=== PATIENT | female | born 1985 | race Caucasian/White ===

== ENCOUNTER 2019-02-11 05:07 | Inpatient (IN) | payer BC ==
[2019-02-11] MEDS ORDERED: Sodium Chloride 0.9% 10 ML Syringe FLUSH PRN (05:19)
[2019-02-11] MEDS ORDERED: ceFAZolin 2 GM in Premix Bag 1 BAG IV ONE (05:19)
[2019-02-11] MEDS ORDERED: Citric Acid/Sodium Citrate Solution 30 ML Cup PO ONE (05:19)
[2019-02-11] MEDS ORDERED: Sodium Chloride 0.9% 2.5 ML Syringe FLUSH PRN (05:19)
[2019-02-11] MEDS ORDERED: Sodium Chloride 0.9% 10 ML SDV IV PRN (05:19)
[2019-02-11] MEDS ORDERED: Oxytocin/0.9 % Sodium Chloride 30 UNIT/500 ML BAG IV SCH (05:30)
[2019-02-11] MEDS: Lactated Ringers 1,000 ML IV SCH ×3 (06:41→07:43)
--- NOTE | 2019-02-11 06:53 | PCM.PREANE ---
Preanesthetic Assessment - Anesthesia/Transfusion/Family Hx Anesthesia History: Prior Anesthesia Without Reaction Family History of Anesthesia Reaction: No Transfusion History: No Prior Transfusion(s) Intubation History: Unknown - Review of Systems General: No Symptoms Pulmonary: No Symptoms Cardiovascular: No Symptoms Gastrointestinal: No Symptoms Neurological: No Symptoms Other: Reports: None - Physical Assessment Height: 5 ft 2 in Weight: 78.925 kg ASA Class: 2 Mental Status: Alert & Oriented x3 Airway Class: Mallampati = 2 Dentition: Reports: Normal Dentition Thyro-Mental Finger Breadths: 3 Mouth Opening Finger Breadths: 3 ROM/Head Extension: Full Lungs: Clear to Auscultation, Normal Respiratory Effort Cardiovascular: Regular Rate, Regular Rhythm - Lab Values: Laboratory Last Values WBC 8.06 K/uL (4.0-11.0) 02/11/19 05:45 RBC 3.53 M/uL (4.30-5.90) L 02/11/19 05:45 Hgb 10.9 g/dL (12.0-16.0) L 02/11/19 05:45 Hct 32.1 % (36.0-46.0) L 02/11/19 05:45 MCV 90.9 fL (80.0-98.0) 02/11/19 05:45 MCH 30.9 pg (27.0-32.0) 02/11/19 05:45 MCHC 34.0 g/dL (31.0-37.0) 02/11/19 05:45 RDW Std Deviation 41.6 fl (28.0-62.0) 02/11/19 05:45 RDW Coeff of Elke 13 % (11.0-15.0) 02/11/19 05:45 Plt Count 168 K/uL (150-400) 02/11/19 05:45 MPV 11.20 fL (7.40-12.00) 02/11/19 05:45 Nucleated RBC % 0.0 /100WBC 02/11/19 05:45 Nucleated RBCs # 0 K/uL 02/11/19 05:45 - Allergies Allergies/Adverse Reactions: Allergies Allergy/AdvReac Type Severity Reaction Status Date / Time No Known Allergies Allergy Verified 02/06/19 10:21 - Blood Blood Available: No - Anesthesia Plan Pre-Op Medication Ordered: None - Acknowledgements Anesthesia Type Planned: Spinal (general anesthesia back-up plan) Pt an Appropriate Candidate for the Planned Anesthesia: Yes Alternatives and Risks of Anesthesia Discussed w Pt/Guardian: Yes Pt/Guardian Understands and Agrees with Anesthesia Plan: Yes PreAnesthesia Questionnaire - Past Health History Medical/Surgical History: Denies Medical/Surgical History HEENT History: Reports: Other (See Below) Other HEENT History: glasses as needed Cardiovascular History: Reports: None Respiratory History: Reports: None Gastrointestinal History: Reports: Other (See Below) Other Gastrointestinal History: heartburn with Genitourinary History: Reports: None [employer]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: Musculoskeletal History: Reports: None Neurological History: Reports: None Psychiatric History: Reports: None Endocrine/Metabolic History: Reports: None Hematologic History: Reports: None Immunologic History: Reports: None Oncologic (Cancer) History: Reports: None Dermatologic History: Reports: None - Infectious Disease History Infectious Disease History: Reports: None - Past Surgical History Head Surgeries/Procedures: Reports: None HEENT Surgical History: Reports: None Cardiovascular Surgical History: Reports: None Respiratory Surgical History: Reports: None GI Surgical History: Reports: None Female Surgical History: Reports: Section Endocrine Surgical History: Reports: None Neurological Surgical History: Reports: None Musculoskeletal Surgical History: Reports: None Oncologic Surgical History: Reports: None Dermatological Surgical History: Reports: None - SUBSTANCE USE Smoking Status *Q: Never Smoker Second Hand Smoke Exposure: No Recreational Drug Use History: No - HOME MEDS Home Medications: Home Meds Omeprazole Magnesium [Prilosec Otc] 1 tab PO DAILY 02/06/19 [History] PNV95/Ferrous Fumarate/FA [ Vitamin Tablet] 1 tab PO DAILY 02/06/19 [ History] Doxylamine Succinate [Unisom] 25 mg PO BEDTIME PRN 02/11/19 [History] - CURRENT (IN HOUSE) MEDS Current Meds: Current Medications Lactated Ringer's (Ringers, Lactated) 1,000 mls @ 999 mls/hr IV BOLUS [facility] Last Admin: 02/11/19 06:41 Dose: 999 mls/hr Oxytocin/Sodium Chloride (Oxytocin 30 Unit/500 Ml-Ns) 30 unit in 500 mls @ 250 mls/hr IV TITRATE [facility] Sodium Chloride (Saline Flush) 10 ml FLUSH ASDIRECTED PRN PRN Reason: Keep Vein Open Sodium Chloride (Saline Flush) 2.5 ml FLUSH ASDIRECTED PRN PRN Reason: Keep Vein Open Sodium Chloride (Normal Saline) 10 ml IV ASDIRECTED PRN PRN Reason: IV Use Discontinued Medications Citric Acid/Sodium Citrate (Bicitra Solution) 30 ml PO ONETIME ONE Stop: 02/11/19 05:20 Cefazolin Sodium/Dextrose 2 gm (/ Premix) 50 mls @ 100 mls/hr IV ONETIME ONE Stop: 02/11/19 05:48
[2019-02-11] MEDS ORDERED: Morphine PF 10 MG/10 ML SDV ONE (07:22)
[2019-02-11] MEDS ORDERED: ceFAZolin/Dextrose,Iso-Osmotic 2 GM/50 ML Duplex Bag IV ONE (07:22)
[2019-02-11] MEDS ORDERED: Oxytocin 10 Units/1 ML SDV ONE (07:33)
[2019-02-11] MEDS ORDERED: Ketorolac 30 MG/ML SDV ONE (08:36)
[2019-02-11] MEDS ORDERED: Ondansetron 4 MG/2 ML SDV IVPUSH PRN ×2 (09:10→09:51)
[2019-02-11] MEDS ORDERED: Ibuprofen 800 MG Tab PO PRN (09:10)
[2019-02-11] MEDS ORDERED: Aluminum Hydroxide/Magnesium Hydroxide/Simethicone Susp 30 ML Cup PO PRN (09:10)
[2019-02-11] MEDS ORDERED: Bisacodyl 10 MG Supp RECTAL PRN (09:10)
[2019-02-11] MEDS ORDERED: Acetaminophen/oxyCODONE 325-5 MG Tab PO PRN ×2 (09:10→09:51)
[2019-02-11] MEDS ORDERED: diphenhydrAMINE 50 MG/ML SDV IVPUSH PRN ×2 (09:10→09:51)
[2019-02-11] MEDS ORDERED: Lanolin 100% Cream 7 GM Tube TOP PRN (09:10)
--- NOTE | 2019-02-11 09:13 | PCM.OPNOTE ---
- General Post-Op/Procedure Note Date of Surgery/Procedure: 02/11/19 Operative Procedure(s): Repeat LTCS Findings: Vaible male APGARs 8, 9 weight 3820 gm. Intact placenta with 3V cord. Pre Op Diagnosis: 39 week IUP. Previous C section, desires repeat Post-Op Diagnosis: same Anesthesia Technique: Spinal Primary Surgeon: Sindhu Atkins Distribution Transformer Assembler: Clari Hidalgo Fluid Replacement, Intraop: 1,200 EBL in mLs: 500 Complications: none known Condition: Good Free Text/Narrative:: [id number]
[2019-02-11] MEDS ORDERED: Lactated Ringers 1,000 ML IV SCH (09:15)
[2019-02-11] MEDS ORDERED: Nalbuphine 10 MG/1 ML Vial IVPUSH PRN (09:51)
[2019-02-11] MEDS ORDERED: Naloxone 0.4 MG/ML Syringe IVPUSH PRN (09:51)
[2019-02-11] MEDS ORDERED: fentaNYL 100 MCG/2 ML SDV IVPUSH PRN (09:51)
[2019-02-11] MEDS: Ketorolac 30 MG/ML SDV IVPUSH SCH ×3 (11:21→20:54)
--- NOTE | 2019-02-11 11:36 | OR ---
SURGEON: Sindhu Atkins M.D. DATE OF PROCEDURE: 02/11/2019 PREOPERATIVE DIAGNOSES: 1. 39 weeks' intrauterine . 2. Previous section, desires repeat. POSTOPERATIVE DIAGNOSES: 1. 39 weeks' intrauterine . 2. Previous section, desires repeat. PROCEDURE: Repeat low-transverse section. PRIMARY SURGEON: Sindhu Atknis MD. CORPORATE REPRESENTATIVE: Kelly Hidalgo. ANESTHESIA: Spinal. ESTIMATED BLOOD LOSS: 500 mL. FLUIDS: 1200 mL of crystalloid. COMPLICATIONS: None known. FINDINGS: Viable male. scores of 8 at 1 minute and 9 at 5 minutes. Weight of 3820 g. Intact placenta, 3-vessel cord. DISPOSITION: to nursery, mom in the PACU, stable. PROCEDURE DETAILS: Cari is a 33-year-old, G3, P 1-0-1-1 at 39 weeks' gestational age, who presents for scheduled repeat delivery. Risks of procedure have been discussed with her. Proper consent obtained. The patient was taken to the operating room where she underwent spinal anesthetic, was then placed in dorsal lithotomy position with leftward tilt. SCDs to lower extremities. Maloney to gravity. Was prepped and draped in the usual sterile fashion. Received Ancef prophylactically. Time-out was performed. After being prepped and draped in the usual sterile fashion, anesthesia was tested and found to be adequate. Previous Pfannenstiel scar was now excised. The subcutaneous tissue was incised down to the level of the rectus fascia which was incised in the midline, lateralized on either side sharply and bluntly. The superior aspect of fascia was tented up, dissected sharply and bluntly from underlying muscle. There was a fair amount of dense scar tissue noted along this plane. Similar fashion was performed with the inferior aspect of the fascia. Rectus muscles in the midline. Peritoneum was entered. Rectus muscles with peritoneum were now lateralized bluntly. Uterine position and position palpated. There was a fair amount of dense uterovesical adhesions noted. A self-retaining retractor gently placed. Uterovesical adhesions identified and a bladder flap was created after lysing adhesions along this plane. Bladder was mobilized away from the lower uterine segment. Low transverse hysterotomy was now performed. Uterine cavity was entered with blunt end of scalpel. Hysterotomy was lateralized bluntly and amniotomy was performed. Clear fluid was returned. The 's head was flexed and delivered from the pelvis. Fundal pressure was applied. The infant's head was delivered followed by anterior shoulder, posterior shoulder, and remainder of the body without difficulty. The 's oropharynx and nares were bulb suctioned. After a delay, cord was clamped x2 and cut. Infant was handed off to attending nursing staff. Cord arterial, cord venous, cord blood sampling was obtained. The placenta was now delivered. Uterine cavity was cleared of all clot and debris. Hysterotomy was repaired using 0 Vicryl in continuous running locked fashion followed by a re-imbricating layer. Areas of oozing along the midline, left lateral aspect were replicated with [id number] sutures. Hemostasis thereafter evident. Posterior aspect of the uterus inspected. No defects or hematomas found to be forming. Region was well irrigated, suction dried. Uterus returned to the abdominal cavity. Colonic gutters were cleared of all clot and debris, well irrigated, suction dried. Hysterotomy was inspected, found to be hemostatic. Self-retaining retractor now gently removed. Bladder blade retractor was now placed. Hysterotomy once again inspected and found to be hemostatic. Rectus muscles, peritoneum were now reapproximated using 0 Vicryl with inverted mattress suture technique. Anterior aspect of the muscle, posterior aspect of the fascia were closely inspected. Any areas that were oozing were cauterized. The rectus fascia was now reapproximated using 0 Vicryl in continuous running fashion, beginning laterally on either side, meeting in the midline. Subcutaneous tissue was well irrigated, suction dried. Any areas of oozing were cauterized. The skin edges were reapproximated using 3-0 Vicryl on a Saleem needle in subcuticular fashion followed by Adaptic, Steri-Strips, and Mastisol. Uterus remained firm. Sponge, instrument, and needle counts correct x2. The patient tolerated the procedure well. She will go to PACU in stable condition, to nursery. ISRAEL / MADINA /[id number]
[2019-02-11] MEDS: Simethicone 80 MG Tab.Chew PO SCH ×2 (12:06→18:19)
[2019-02-11] MEDS ORDERED: Dexamethasone 10 MG/ML SDV IVPUSH ONE (12:37)
[2019-02-11] MEDS ORDERED: Ondansetron 4 MG/2 ML SDV IVPUSH ONE (12:37)
[2019-02-11] MEDS ORDERED: Metoclopramide 10 MG/2 ML SDV IVPUSH ONE (12:37)
[2019-02-11] MEDS: Docusate Sodium 100 MG Cap PO SCH (20:55)
[2019-02-12] MEDS: Simethicone 80 MG Tab.Chew PO SCH ×3 (00:08→12:16)
[2019-02-12] MEDS: Ketorolac 30 MG/ML SDV IVPUSH SCH ×2 (03:24→09:19)
--- NOTE | 2019-02-12 07:03 | PCM48HPAN ---
Post Anesthesia Note - EVALUATION WITHIN 48HRS OF ANESTHETIC Vital Signs in Normal Range: Yes Patient Participated in Evaluation: Yes Respiratory Function Stable: Yes Airway Patent: Yes Cardiovascular Function Stable: Yes Hydration Status Stable: Yes Pain Control Satisfactory: Yes Nausea and Vomiting Control Satisfactory: Yes Mental Status Recovered: Yes Resp Rate: 14 - COMMENTS/OBSERVATIONS Free Text/Narrative:: no anesthesia problems, baby intubated and transferred to [facility]
--- NOTE | 2019-02-12 08:52 | PCM.PNPP ---
- General Info Date of Service: 02/12/19 Functional Status: Reports: Pain Controlled, Tolerating Diet, Ambulating, Urinating - Review of Systems General: Reports: Fatigue. Denies: Fever, Weakness Pulmonary: Denies: Shortness of Breath Cardiovascular: Denies: Chest Pain, Palpitations, Lightheadedness Gastrointestinal: Denies: Abdominal Pain, Nausea, Vomiting Genitourinary: Denies: Flank Pain Musculoskeletal: Reports: No Symptoms Skin: Reports: No Symptoms Neurological: Reports: No Symptoms Psychiatric: Reports: Anxiety (son transferred to [facility] for TTN) - General Info Date of Service: 02/12/19 - Patient Data Vital Signs - Most Recent: Last Vital Signs Temp 36.6 C 02/12/19 04:00 Pulse 84 02/12/19 07:00 Resp 14 02/12/19 07:03 BP 124/70 02/12/19 01:00 Pulse Ox 96 02/12/19 07:00 Weight - Most Recent: 78.925 kg I&O - Last 24 Hours: Intake & Output 02/11/19 02/12/19 02/12/19 22:59 06:59 14:59 Intake Total 1000 Output Total 1525 825 Balance -525 -825 Lab Results - Last 24 Hours: Laboratory Results - last 24 hr 02/11/19 02/12/19 Range/Units 09:12 05:37 Hgb 9.6 L (12.0-16.0) g/dL Hct 29.2 L (36.0-46.0) % Cord ABG pH 7.338 (7.18-7.38) Cord ABG Base Excess -3 (-10--2) Cord VBG pH 7.408 (7.25-7.45) Cord VBG Base Excess -4 (-10--2) Med Orders - Current: Current Medications Al Hydroxide/Mg Hydroxide (Mag-Al Plus) 30 ml PO Q8H PRN PRN Reason: Heartburn Bisacodyl (Dulcolax) 10 mg RECTAL ONETIME PRN PRN Reason: Constipation Diphenhydramine HCl (Benadryl) 25 mg IVPUSH Q6H PRN PRN Reason: Itching or Nausea Diphenhydramine HCl (Benadryl) 25 mg IVPUSH Q4H PRN PRN Reason: Itching Stop: 02/12/19 09:51 Docusate Sodium (Colace) 100 mg PO BID [facility] Last Admin: 02/11/19 20:55 Dose: 100 mg Emollient Ointment (Lansinoh Hpa) 0 gm TOP ASDIRECTED PRN PRN Reason: Sore Nipples Fentanyl (Sublimaze) 50 mcg IVPUSH Q1H PRN PRN Reason: Pain (severe 7-10) Lactated Ringer's (Ringers, Lactated) 1,000 mls @ 999 mls/hr IV BOLUS [facility] Last Admin: 02/11/19 07:43 Dose: 999 mls/hr Oxytocin/Sodium Chloride (Oxytocin 30 Unit/500 Ml-Ns) 30 unit in 500 mls @ 250 mls/hr IV TITRATE [facility] Lactated Ringer's (Ringers, Lactated) 1,000 mls @ 125 mls/hr IV ASDIRECTED [facility] Last Admin: 02/11/19 13:07 Dose: 125 mls/hr Ibuprofen (Motrin) 800 mg PO Q8H PRN PRN Reason: mild pain or fever Ketorolac Tromethamine (Toradol) 30 mg IVPUSH Q6H [facility] Stop: 02/12/19 08:46 Last Admin: 02/12/19 03:24 Dose: 30 mg Nalbuphine HCl (Nubain) 5 mg IVPUSH ASDIRECTED PRN PRN Reason: Itching Naloxone HCl (Narcan) 0.1 mg IVPUSH ONETIME PRN PRN Reason: Respiratory Depression Stop: 02/12/19 09:51 Ondansetron HCl (Zofran) 4 mg IVPUSH Q4H PRN PRN Reason: Nausea/Vomiting Last Admin: 02/11/19 10:29 Dose: 4 mg Ondansetron HCl (Zofran) 4 mg IVPUSH Q6H PRN PRN Reason: Nausea Oxycodone/Acetaminophen (Percocet 325-5 Mg) 1 tab PO Q4H PRN PRN Reason: Pain (moderate 4-6) Oxycodone/Acetaminophen (Percocet 325-5 Mg) 2 tab PO Q4H PRN PRN Reason: Pain (moderate 4-6) Oxycodone/Acetaminophen (Percocet 325-5 Mg) 2 tab PO Q6H PRN PRN Reason: Pain (moderate 4-6) Simethicone (Simethicone) 160 mg PO QID [facility] Last Admin: 02/12/19 06:59 Dose: Not Given Sodium Chloride (Saline Flush) 10 ml FLUSH ASDIRECTED PRN PRN Reason: Keep Vein Open Sodium Chloride (Saline Flush) 2.5 ml FLUSH ASDIRECTED PRN PRN Reason: Keep Vein Open Sodium Chloride (Normal Saline) 10 ml IV ASDIRECTED PRN PRN Reason: IV Use Discontinued Medications Cefazolin Sodium/Dextrose (Ancef) Confirm Administered Dose 4 gm IV .STK-MED ONE Stop: 02/11/19 07:23 Citric Acid/Sodium Citrate (Bicitra Solution) 30 ml PO ONETIME ONE Stop: 02/11/19 05:20 Last Admin: 02/11/19 11:20 Dose: Not Given Dexamethasone (Dexamethasone) 10 mg IVPUSH ONETIME ONE Stop: 02/11/19 12:38 Last Admin: 02/11/19 13:14 Dose: 10 mg Cefazolin Sodium/Dextrose 2 gm (/ Premix) 50 mls @ 100 mls/hr IV ONETIME ONE Stop: 02/11/19 05:48 Last Admin: 02/11/19 11:19 Dose: Not Given Ketorolac Tromethamine (Toradol) Confirm Administered Dose 30 mg .ROUTE .STK- MED ONE Stop: 02/11/19 08:37 Metoclopramide HCl (Reglan) 10 mg IVPUSH ONETIME ONE Stop: 02/11/19 12:38 Last Admin: 02/11/19 13:11 Dose: 10 mg Morphine Sulfate (Duramorph Pf) Confirm Administered Dose 10 mg .ROUTE .STK-MED ONE Stop: 02/11/19 07:23 Ondansetron HCl (Zofran) 4 mg IVPUSH ONETIME ONE Stop: 02/11/19 12:38 Last Admin: 02/11/19 13:09 Dose: 4 mg Oxytocin (Pitocin) Confirm Administered Dose 30 unit .ROUTE .STK-MED ONE Stop: 02/11/19 07:34 - Interaction Support Person: Significant Other - Recovery Exam Fundal Tone: Firm Fundal Level: At Umbilicus Fundal Placement: Midline Lochia Amount: Scant Lochia Color: Rubra/Red Perineum Description: Intact, Minimal Bruising/Swelling Episiotomy/Laceration: None Bladder Status: Indwelling Catheter in Place Urinary Elimination: Indwelling Catheter - Exam General: Alert, Oriented Lungs: Normal Respiratory Effort Cardiovascular: Regular Rate, Regular Rhythm GI/Abdominal Exam: Normal Bowel Sounds, Soft, No Distention, Tender ( appropriately along incision) Skin: Warm, Dry, Intact Wound/Incisions: Healing Well, No Drainage. No: Erythema Neurological: No New Focal Deficit Psy/Mental Status: Alert, Anxious - Problem List & Annotations (1) delivery delivered SNOMED Code(s): 549299912 Code(s): O82 - ENCOUNTER FOR DELIVERY WITHOUT INDICATION Status: Acute Current Visit: Yes - Problem List Review Problem List Initiated/Reviewed/Updated: Yes - My Orders Last 24 Hours: My Active Orders 02/11/19 08:45 Ketorolac [Toradol] 30 mg IVPUSH Q6H 02/11/19 09:10 Patient Status [ADT] Routine Ambulate [RC] PER UNIT ROUTINE Communication Order [RC] PER UNIT ROUTINE Communication Order [RC] PER UNIT ROUTINE Communication Order [RC] Per Unit Routine May Shower [RC] ASDIRECTED Notify Provider Intake and Out [RC] ASDIRECTED Notify Provider Vital Signs [RC] ASDIRECTED RT Incentive Spirometry [RC] Q2HWA Vital Signs [RC] PER UNIT ROUTINE Acetaminophen/oxyCODONE [Percocet 325-5 MG] 1 tab PO Q4H PRN Acetaminophen/oxyCODONE [Percocet 325-5 MG] 2 tab PO Q4H PRN Alum Hydrox/Mag Hydrox/Simeth [Mag-Al Plus] 30 ml PO Q8H PRN Bisacodyl [Dulcolax] 10 mg RECTAL ONETIME PRN Ibuprofen [Motrin] 800 mg PO Q8H PRN Lanolin [Lansinoh HPA] See Dose Instructions TOP ASDIRECTED PRN Ondansetron [Zofran] 4 mg IVPUSH Q4H PRN diphenhydrAMINE [Benadryl] 25 mg IVPUSH Q6H PRN Abdominal Binder [OM.PC] Routine Assess Lochia [WOMSER] Per Unit Routine Assess Uterine Involution [WOMSER] Per Unit Routine Breast Pump [WOMSER] Per Unit Routine Heat Therapy [OM.PC] Routine Ice Therapy [OM.PC] Routine Peripheral IV Discontinue [OM.PC] Routine Sequential Compression Device [OM.PC] Per Unit Routine 02/11/19 09:11 Antiembolic Devices [RC] PER UNIT ROUTINE 02/11/19 09:15 Lactated Ringers [Ringers, Lactated] 1,000 ml IV ASDIRECTED 02/11/19 12:00 Simethicone 160 mg PO QID 02/11/19 21:00 Docusate Sodium [Colace] 100 mg PO BID 02/11/19 Lunch Regular Diet [DIET] - Assessment Assessment:: POD 1 status post repeat c section - Plan Plan:: VS are stable, labs reassuring. Patient to ambulate halls today. She would like to be discharged later. We will see how the day goes--if remains stable and feels well, may discharge to be able to go to [place]. Discharge instructions reviewed. Follow up at [facility] 2 and 6 weeks. Continue postoperative cares.
[2019-02-12] MEDS: Docusate Sodium 100 MG Cap PO SCH (09:18)
[2019-02-12] MEDS: Acetaminophen/oxyCODONE 325-5 MG Tab PO PRN ×2 (12:17→16:02)
== END 2019-02-12 16:15 | disposition home or self-care (01) | DRG 540 ==
LOC: MW.OB 05:07
PROVIDERS: ADMIT Obstetrics & Gynecology; ATTEND Obstetrics & Gynecology
PROC: 10D00Z1 Extraction of Products of Conception, Low, Open Approach (ICD-10-PCS; principal; 2019-02-11)
DX: O34.211 Maternal care for low transverse scar from previous cesarean delivery (principal); O99.824 Streptococcus B carrier state complicating childbirth; Z3A.39 39 weeks gestation of pregnancy; Z37.0 Single live birth
CPT/HCPCS: 01961; 36415; 51702; 59025; 82803; 85014; 85018; 85027; 86850; 86900; 86901; A9270-GY; J0690; J1100; J1885; J2270; J2405; J2590; J2765; J7120